=== PATIENT | male | born 1965 | race Caucasian/White ===

== ENCOUNTER 2017-03-06 06:52 | Day surgery (SDC) | payer BC ==
[~2017-03-06 06:52] MED LIST: ACETAMINOPHEN 1000MG/100 ML PREMIX IV ONE; FAMOTIDINE 20MG TABLET PO ONE; MECLIZINE 25 MG TABLET PO ONE; METOCLOPRAMIDE 10 MG TABLET PO ONE
[2017-03-06] MEDS ORDERED: BUPIVACAINE 0.25% W/EPI MPF 30ML VIAL IVP ONE (12:29)
[2017-03-06] MEDS ORDERED: OXYCODONE HCL/APAP 5MG/325MG TABLET PO ONE (12:29)
[2017-03-06] MEDS ORDERED: SCOPOLAMINE 1 PATCH TDSY TD ONE (13:13)
[2017-03-06] MEDS ORDERED: ONDANSETRON HCL IV 4 MG/2 ML VIAL IVP ONE (13:13)
[2017-03-06] MEDS ORDERED: *PACU ONLY* KETAMINE HCL 10 MG/ML (20ML) VIAL IV ONE (13:13)
[2017-03-06] MEDS ORDERED: DEXAMETHASONE 4 MG/ML 1ML VIAL IVP ONE (13:13)
[2017-03-06] MEDS ORDERED: PROPOFOL 10 MG/ML VIAL IV ONE (13:13)
[2017-03-06] MEDS ORDERED: LIDOCAINE 2% MDV (20MG/ML) 20ML VIAL IV ONE (13:13)
[2017-03-06] MEDS ORDERED: MIDAZOLAM HCL 2MG/2ML VIAL IV ONE (13:13)
[2017-03-06] MEDS ORDERED: KETOROLAC 30 MG/ML VIAL IVP ONE (13:13)
--- NOTE | 2017-03-09 17:30 | Operative Note ---
DATE OF SURGERY: 03/06/2017 PREOPERATIVE DIAGNOSES: 1. Torn medial meniscus left knee. 2. Chondromalacia of the left knee POSTOPERATIVE DIAGNOSES: 1. Torn medial meniscus left knee. 2. 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 3. Synovitis left knee (3 compartments). Surgeon: Chandan Noble DO OPERATION: 1. Arthroscopic partial medial meniscectomy left knee. 2. Arthroscopic partial synovectomy left knee (3 compartments). 3. Arthroscopic chondroplasty medial femoral condyle left knee. Anesthesia: General. PROCEDURE: This 51-year-old male was taken to the operating room and placed in the supine position on the operating room table. A general anesthetic was administered and the left lower extremity was elevated, exsanguinated, and tourniquet inflated to 300 mmHg. Arthroscopic knee-dan applied. The left knee prepped with Hibiclens and draped in the usual sterile fashion. An inferolateral portal was established with a 4 mm arthroscope and initial evaluation of the joint demonstrated normal appearance of the suprapatellar pouch, but the patient did have grade 2 chondromalacia of the patella, but it was not grossly unstable. There was grade 3 chondromalacia of the trochlea, but again, no evidence of any significant loose fragments were identified, and probing confirmed these findings. We then directed our attention medially and the patient had a very large thick and fibrotic medial mid patella plica which was resected with the rotating shaver. The medial compartment was entered and a grade 2 chondromalacia of the weightbearing surface of the medial femoral condyle was present, and there was a complex tear of the medial meniscus of the body and the posterior horn. The tear extended from approximately the 9:30 position around to approximately the 12 o'clock position, utilizing the basket forceps and rotating shaver, we resected to the apex of the tear and then tapered in each direction to stabilize the meniscus. It was then reprobed and confirmed to be stable. The patient did have some areas of loose fragments ____ of the articular cartilage and the medial femoral condyle, and a chondroplasty was performed there to stabilize the cartilage. The patient did demonstrate synovitis in the suprapatellar pouch medially adjacent to the plica in addition at the anterior medial and anterior lateral compartment synovitis was present. The intracondylar notch was examined and found to be normal. The lateral compartment was entered and no evidence of lateral meniscal tear was identified. The articular cartilage of the lateral compartment appeared normal. The joint was copiously irrigated with lactated Ringer's solution, it was suctioned. The instruments were removed. The portal was infiltrated with 0.25% Marcaine with epinephrine. Sterile dressings applied. The tourniquet and knee-dan released, and the patient taken to the recovery room in satisfactory condition. GROSS PATHOLOGY: This patient demonstrated complex tear of the posterior horn and body of the medial meniscus, in addition grade 2 chondromalacia of the weightbearing surface of the medial femoral condyle and grade 3 of the trochlea, grade 2 of the patella as described above. A thickened medial mid patellar plica was present, along with synovitis as described. MTDD
== END 2017-03-06 10:15 | disposition home or self-care (01) ==
LOC: SUR 06:52
PROVIDERS: ATTEND Orthopaedic Surgery
DX: M23.222 Derangement of posterior horn of medial meniscus due to old tear or injury, left knee (principal); M22.42 Chondromalacia patellae, left knee; M65.88 Other synovitis and tenosynovitis, other site
CPT/HCPCS: 93005; 93010; 29881; 29876; 01400; J1885; J2405